=== PATIENT | female | born 1980 | race Two or more races ===

== ENCOUNTER 2018-06-15 11:31 | Emergency (ER) | payer SELFPAY ==
[2018-06-15 11:39] VITALS: BP 160/86
[2018-06-15] MEDS ORDERED: OXYCODONE-ACETAMINOPHEN 5-325 MG TABLET PO ONE (12:27)
--- NOTE | 2018-06-15 12:31 | ER Document Report ---
ED Neck/Back Problem - General Chief Complaint: Back Pain Stated Complaint: BACK PAIN Time Seen by Provider: 06/15/18 12:07 Mode of Arrival: Ambulatory Information source: Patient Notes: 37-year-old female presents to ED for complaint of low back pain. She is a chronic pain regimen patient who went to chronic pain management they wrote her a prescription for her oxycodone and the pharmacy would not fill them yesterday. They stated that her insurance stated she had had more than she could have and that she needed to be authorized and that would not start until tomorrow and then it would take 72 hours. Patient states she had offered to pay pickens and the pharmacist would not sell her the medication. Patient states she does not have full Medicaid anymore she only has family planning. Patient states she is to have surgery on her back on 23 June and she is out of her pain medicine. TRAVEL OUTSIDE OF THE [place] IN LAST 30 DAYS: No - HPI Patient complains to provider of: Lower back Onset: Other Onset: Chronic - Chronic Timing: Still present, Worse - Due to pharmacy not filling her prescription Quality of pain: Sharp, Throbbing Severity: Severe Pain Level: 5 Context: Turning Recent injury: No Associated symptoms: Like prior neck/back pain, Radiation to leg, Lower back pain. denies: Constipation, Fever, Incontinence, Motor loss, Numbness/tingling, Sensory loss, Sweaty, Unable to urinate, Upper back pain Exacerbated by: Movement of trunk, Sitting position Relieved by: Nothing Similar symptoms previously: Yes Recently seen / treated by doctor: Yes - Related Data Allergies/Adverse Reactions: No Known Allergies Allergy (Verified 06/15/18 11:34) Past Medical History - General Information source: Patient - Social History Smoking Status: Former Smoker Cigarette use (# per day): No Chew tobacco use (# tins/day): No Smoking Education Provided: No Frequency of alcohol use: None Drug Abuse: None Lives with: Family Family History: Reviewed & Not Pertinent Patient has suicidal ideation: No Patient has homicidal ideation: No - Past Medical History Cardiac Medical History: Reports: Hx Hypertension Pulmonary Medical History: Reports: None EENT Medical History: Reports: None Neurological Medical History: Reports: None Endocrine Medical History: Reports: None Renal/ Medical History: Reports: None Malignancy Medical History: Reports: None GI Medical History: Reports: None Musculoskeletal Medical History: Reports Hx Muscle Weakness, Reports Hx Musculoskeletal Deformity - chronic back pain, Reports Hx Musculoskeletal Trauma Skin Medical History: Reports None Psychiatric Medical History: Reports: None Traumatic Medical History: Reports: None Infectious Medical History: Reports: None Past Surgical History: Reports: Hx Section, Hx Oral Surgery - wisdom - Immunizations Immunizations up to date: Yes Hx Diphtheria, Pertussis, Tetanus Vaccination: Yes Review of Systems - Review of Systems Gastrointestinal: Constipation - Patient had a firm stool today Genitourinary: No symptoms reported Female Genitourinary: No symptoms reported Musculoskeletal: Back pain Skin: No symptoms reported Hematologic/Lymphatic: No symptoms reported Neurological/Psychological: No symptoms reported -: Yes All other systems reviewed and negative Physical Exam - Vital signs Vitals: Temp Pulse Resp BP Pulse Ox 98.5 F 105 H 24 H 160/86 H 98 06/15/18 11:38 06/15/18 11:38 06/15/18 11:38 06/15/18 11:38 06/15/18 11:38 Interpretation: Normal - General General appearance: Appears well, Alert - HEENT Head: Normocephalic, Atraumatic Eyes: Normal Pupils: PERRL - Respiratory Respiratory status: No respiratory distress Chest status: Nontender Breath sounds: Normal Chest palpation: Normal - Cardiovascular Rhythm: Regular Heart sounds: Normal auscultation Murmur: No - Abdominal Inspection: Normal Distension: No distension Bowel sounds: Normal Tenderness: Nontender Organomegaly: No organomegaly - Back Back: Normal, Tender, Vertebra tenderness. No: Deformity/step-off, CVA tenderness, Scars, Scoliosis, Wounds Notes: Patient is very tearful at the bedside. Patient is able to walk. She does have chronic back pain. She is in the emergency room today because the pharmacy would not fill her narcotics and she is in a lot of pain. She is scheduled to have back surgery on 21 November. She does not have cauda equina. She recently had an MRI by her neurologist. - Extremities General upper extremity: Normal inspection, Nontender, Normal color, Normal ROM, Normal temperature General lower extremity: Normal inspection, Nontender, Normal color, Normal ROM, Normal temperature, Normal weight bearing. No: Shell's sign - Neurological Neuro grossly intact: Yes Cognition: Normal Orientation: AAOx4 [place] Coma Scale Eye Opening: Spontaneous [place] Coma Scale Verbal: Oriented [place] Coma Scale Motor: Obeys Commands [place] Coma Scale Total: 15 Speech: Normal Motor strength normal: LUE, RUE, LLE, RLE Sensory: Normal - Psychological Associated symptoms: Normal affect, Normal mood - Skin Skin Temperature: Warm Skin Moisture: Dry Skin Color: Normal Course - Re-evaluation Re-evalutation: 06/15/18 13:30 Pharmacy was called and informed that the chronic pain management wrote the prescription for the oxycodone the patient lost her insurance so there is no prior authorization because there is no authorization as she is on family planning Medicaid only. Patient is willing to pay for the prescription and pain management gave her a discount paper to get the prescription and that they need to fill it. Pharmacy is agreed that she would have the medicine ready in 1 hour. Patient was given a dose of oxycodone 10/10/2024 in the emergency room and sent to the pharmacy to get her medications. - Vital Signs Vital signs: Temp Pulse Resp BP Pulse Ox 98.5 F 105 H 24 H 160/86 H 98 06/15/18 11:38 06/15/18 11:38 06/15/18 11:38 06/15/18 11:38 06/15/18 11:38 Discharge - Discharge Clinical Impression: Chronic low back pain with bilateral sciatica Qualifiers: Back pain laterality: bilateral Qualified Code(s): M54.42 - Lumbago with sciatica, left side Condition: Stable Disposition: HOME, SELF-CARE Additional Instructions: You were seen here today for your chronic low back pain because the pharmacy would not fill your prescription. I have called the pharmacy and they will fill your prescription in 1 hour. I have given you 1 narcotic while you were here to wait for your pharmacy to fill your medicine. Please follow all of the orders that your chronic pain management and your neurologist have given you concerning your chronic back pain. Ice Packs Apply ice packs frequently against the painful area. Many different schedules are recommended, such as "20 minutes on, 20 minutes off" or "one hour ice, two hours rest." If you need to work, you may need to go longer between ice treatments. You should plan to have the area ice packed AT LEAST one fourth of the time. The ice should be applied over the wrap, tape, or splint, or over a layer of cloth -- not directly against the skin. Some ice bags have a built-in cloth and can be put directly on the skin. Warm Packs After approximately two days, apply gentle heat (such as a heating pad or hot water bottle) for about 20 to 30 minutes about every two hours -- at least four times daily. Warmth and elevation will help you make a more rapid recovery, and will ease the pain considerably. Do not use HOT heat, and never apply heat for longer than 30 minutes. The continuous heat can invisibly damage skin and muscles -- even when no burn is seen on the surface. Damaged muscles can make you MORE sore. FOLLOW-UP CARE: If you have been referred to a physician for follow-up care, call the physicians office for an appointment as you were instructed or within the next two days. If you experience worsening or a significant change in your symptoms, notify the physician immediately or return to the Emergency Department at any time for re-evaluation. Forms: Elevated Blood Pressure Referrals: DAYDAY PORTILLO MD [Primary Care Provider] - Follow up as needed
== END 2018-06-15 12:42 | disposition home or self-care (01) ==
LOC: ER 11:31
DX: G89.29 Other chronic pain (principal); M54.42 Lumbago with sciatica, left side; M54.41 Lumbago with sciatica, right side; K59.00 Constipation, unspecified; I10 Essential (primary) hypertension; Z87.891 Personal history of nicotine dependence
CPT/HCPCS: 99283

== ENCOUNTER 2018-08-13 14:32 | Emergency (ER) | payer MEDICAID ==
--- NOTE | 2018-08-13 15:41 | ER Document Report ---
ED Medical Screen (RME) - General Chief Complaint: Leg Pain Stated Complaint: POST OP PROBLEMS Time Seen by Provider: 08/13/18 15:38 Primary Care Provider: DAYDAY PORTILLO MD [Primary Care Provider] - Follow up as needed Notes: 37-year-old female to the emergency department for evaluation of right lower extremity pain and swelling. Patient had back surgery 5 weeks ago. Was sent here by her surgeon for evaluation of possible blood clot as her leg is swollen and painful. I have greeted and performed a rapid initial assessment of this patient. A comprehensive ED assessment and evaluation of the patient, analysis of test results and completion of the medical decision making process will be conducted by additional ED providers. TRAVEL OUTSIDE OF THE [place] IN LAST 30 DAYS: No - Related Data Allergies/Adverse Reactions: No Known Allergies Allergy (Verified 08/13/18 14:33) Past Medical History - Past Medical History Cardiac Medical History: Reports: Hx Hypertension Renal/ Medical History: Denies: Hx Peritoneal Dialysis Musculoskeltal Medical History: Reports Hx Muscle Weakness, Reports Hx Musculoskeletal Deformity - chronic back pain, Reports Hx Musculoskeletal Trauma Past Surgical History: Reports: Hx Section, Hx Oral Surgery - wisdom - Immunizations Immunizations up to date: Yes Hx Diphtheria, Pertussis, Tetanus Vaccination: Yes Physical Exam - Vital signs Vitals: Temp Pulse Resp BP Pulse Ox 99.1 F 87 20 152/93 H 99 08/13/18 14:39 08/13/18 14:39 08/13/18 14:39 08/13/18 14:39 08/13/18 14:39 Course - Vital Signs Vital signs: Temp Pulse Resp BP Pulse Ox 99.1 F 87 20 152/93 H 99 08/13/18 14:39 08/13/18 14:39 08/13/18 14:39 08/13/18 14:39 08/13/18 14:39 Doctor's Discharge - Discharge Referrals: DAYDAY PORTILLO MD [Primary Care Provider] - Follow up as needed
--- NOTE | 2018-08-13 16:13 | ER Document Report ---
ED Extremity Problem, Lower - General Chief Complaint: Leg Pain Stated Complaint: POST OP PROBLEMS Time Seen by Provider: 08/13/18 15:38 Primary Care Provider: DAYDAY PORTILLO MD [Primary Care Provider] - Follow up as needed Mode of Arrival: Ambulatory Information source: Patient Notes: 37-year-old female presents to ED for complaint of pain to the right lower ext remity above and below the knee with swelling when she is up and walk. She had spinal fusion 5 weeks ago. She states that the neurosurgeon sent her to the emergency room to have a Doppler to evaluate for blood clot in her leg as her leg is painful and swollen. At this time it is tender to palpation posterior knee and anterior knee. There is no redness or swelling at this time. Patient is alert and oriented respirations regular and unlabored speaking in full sentences TRAVEL OUTSIDE OF THE [place] IN LAST 30 DAYS: No - HPI Patient complains to provider of: Pain, Swelling Location: Knee, Leg, Thigh Onset/Duration: Gradual Quality of pain: Sharp, Throbbing Severity: Moderate Pain Level: 4 Context: Other Recent injury: No Associated symptoms: Painful ambulation - Recent surgery, Other - Pain and swelling to the right lower extremity from just above the knee to below the knee with pain to the anterior and posterior knee Exacerbated by: Hanging down, Movement, Walking Relieved by: Nothing - Related Data Allergies/Adverse Reactions: No Known Allergies Allergy (Verified 08/13/18 16:11) Past Medical History - General Information source: Patient - Social History Smoking Status: Former Smoker Cigarette use (# per day): No Chew tobacco use (# tins/day): No Smoking Education Provided: No Frequency of alcohol use: None Drug Abuse: None Lives with: Family Family History: Reviewed & Not Pertinent Patient has suicidal ideation: No Patient has homicidal ideation: No - Past Medical History Cardiac Medical History: Reports: Hx Hypertension Pulmonary Medical History: Reports: None EENT Medical History: Reports: None Neurological Medical History: Reports: None Endocrine Medical History: Reports: None Renal/ Medical History: Reports: None Malignancy Medical History: Reports: None GI Medical History: Reports: None Musculoskeletal Medical History: Reports Hx Muscle Weakness, Reports Hx Musculoskeletal Deformity - chronic back pain, Reports Hx Musculoskeletal Trauma Skin Medical History: Reports None Psychiatric Medical History: Reports: None Traumatic Medical History: Reports: None Infectious Medical History: Reports: None Past Surgical History: Reports: Hx Section, Hx Oral Surgery - wisdom, Hx Orthopedic Surgery - Spinal fusion lumbar area 06/23/2018 - Immunizations Immunizations up to date: Yes Hx Diphtheria, Pertussis, Tetanus Vaccination: Yes Review of Systems - Review of Systems Constitutional: No symptoms reported EENT: No symptoms reported Cardiovascular: No symptoms reported Respiratory: No symptoms reported Gastrointestinal: No symptoms reported Genitourinary: No symptoms reported Female Genitourinary: No symptoms reported Musculoskeletal: Joint pain - Right knee, Joint swelling - Right knee, Leg swelling - Right Skin: No symptoms reported Hematologic/Lymphatic: No symptoms reported Neurological/Psychological: No symptoms reported Physical Exam - Vital signs Vitals: Temp Pulse Resp BP Pulse Ox 99.1 F 87 20 152/93 H 99 08/13/18 14:39 08/13/18 14:39 08/13/18 14:39 08/13/18 14:39 08/13/18 14:39 Interpretation: Normal - General General appearance: Appears well, Alert - HEENT Head: Normocephalic, Atraumatic Eyes: Normal Pupils: PERRL - Respiratory Respiratory status: No respiratory distress Chest status: Nontender Breath sounds: Normal Chest palpation: Normal - Cardiovascular Rhythm: Regular Heart sounds: Normal auscultation Murmur: No - Abdominal Inspection: Normal Distension: No distension Bowel sounds: Normal Tenderness: Nontender Organomegaly: No organomegaly - Back Back: Normal, Nontender - Extremities General upper extremity: Normal inspection, Nontender, Normal color, Normal ROM, Normal temperature General lower extremity: Normal color, Normal temperature, Normal weight bearing. No: Shell's sign Knee: Tender, Pain with ROM, Patellar tendon intact, Popliteal fossa tender, Tender joint line. No: Abrasion, Deformity, Dislocation, Drawer's test instability, Ecchymosis, Instability, Joint effusion, Laceration, Laxity with valgus stress, Laxity with varus stress, Unable to bear weight - Neurological Neuro grossly intact: Yes Cognition: Normal Orientation: AAOx4 [place] Coma Scale Eye Opening: Spontaneous [place] Coma Scale Verbal: Oriented [place] Coma Scale Motor: Obeys Commands [place] Coma Scale Total: 15 Speech: Normal Motor strength normal: LUE, RUE, LLE, RLE Sensory: Normal - Psychological Associated symptoms: Normal affect, Normal mood - Skin Skin Temperature: Warm Skin Moisture: Dry Skin Color: Normal Course - Vital Signs Vital signs: Temp Pulse Resp BP Pulse Ox 97.6 F 83 18 136/84 H 98 08/13/18 18:08 08/13/18 18:08 08/13/18 18:08 08/13/18 18:08 08/13/18 18:08 - Diagnostic Test Radiology reviewed: Image reviewed, Reports reviewed Discharge - Discharge Clinical Impression: Arthritis of right knee, Pain, joint, knee, right Condition: Stable Disposition: HOME, SELF-CARE Additional Instructions: Arthritis Your symptoms are due to arthritis. Arthritis is an inflammation of the joints. There are many types -- osteoarthritis (due to "wear and tear"), auto- immmune arthritis (such as rheumatoid, lupus, Melissa's, and others), and crystal-induced arthritis (such as gout and pseudogout). The physician's examination, combined with laboratory tests, will determine the cause of your arthritis. All types of arthritis are treated with antiinflammatory medications. Other medication may be required for special types of arthritis, or if your problem does not respond to the antiinflammatory medicine. Local warmth may be helpful. Move the involved joints through the full ran ge of motion daily. Mild exercise is usually still possible for most persons with arthritis (ask your physician). Swimming provides good exercise without damaging the joints. Contact the physician if you are worsening in any way. Ibuprofen Ibuprofen is an excellent, safe drug for pain control. In addition, it has potent antiinflammatory effects which are beneficial, especially in the treatment of injuries, arthritis, or tendonitis. It's best to take ibuprofen with food. Persons with ulcer disease or allergy to aspirin should notify their physician of this before taking ibuprofen. Take the medication exactly as prescribed. Don't take additional doses unless instructed to do so by your doctor. If you develop wheezing, shortness of breath, hives, faintness, stomach pain, vomiting, or dark black stools, return for re-evaluation at once. Ice & Elevation Apply ice packs frequently against the painful area. Many different schedules are recommended, such as "20 minutes on, 20 minutes off" or "one hour ice, two hours rest." If you need to work, you may need to go longer between ice treatments. You should plan to have the area ice packed AT LEAST one-fourth of the time. The ice should be applied over the wrap, tape, or splint, or over a layer of cloth -- not directly against the skin. Some ice bags have a built-in cloth and can be put directly on the skin. Your injured part should be elevated as much as possible over the next 48 hours. Try to keep the injury above the level of the heart. Avoid use of the injured area. Elevation and rest will decrease the swelling. Knee Exercise Program It's important to strengthen the muscles around the knee. This protects the injured area and stabilizes a knee that's been loosened by ligament injury. EARLY - Even when motion of the knee is painful (even when wearing a splint), you can begin isometric "quads" exercises. While sitting, hold the knee out, and contract the muscles to stiffen it. It shouldn't be straightened all the way -- stiffen it in a slightly-bent position. Lift the leg and draw a "T" with your foot, up to 100 times. When it becomes easy, add a weight on your foot. LATE - When the doctor advises you, you can begin moving the knee against resistance. The front muscles (quadriceps) are most important. While sitting at a [employer], straighten the knee forcefully while pushing a weight up with your ankle. Start with five to 10 pounds. Do 10 to 20 repetitions, increasing the weight as tolerated. Don't use more weight than is comfortable! Over a few weeks, work up to 35 to 50 pounds. Athletes should try to reach 70 to 90 pounds. FOLLOW-UP CARE: If you have been referred to a physician for follow-up care, call the physicians office for an appointment as you were instructed or within the next two days. If you experience worsening or a significant change in your symptoms, notify the physician immediately or return to the Emergency Department at any time for re-evaluation. Forms: Elevated Blood Pressure Referrals: DAYDAY PORTILLO MD [Primary Care Provider] - Follow up as needed
--- NOTE | 2018-08-13 16:55 | RADIOLOGY REPORT (SQ) ---
EXAM DESCRIPTION: KNEE RIGHT 4 VIEWS COMPLETED DATE/TIME: 08/13/2018 4:25 pm REASON FOR STUDY: pain post op for spinal surgery COMPARISON: None. NUMBER OF VIEWS: Four views. TECHNIQUE: AP, lateral, and both oblique radiographic images acquired of the right knee. LIMITATIONS: None. FINDINGS: MINERALIZATION: Normal. BONES: No acute fracture or dislocation. No worrisome bone lesions. JOINT: Mild narrowing of the medial and patellofemoral compartments. Marginal osteophytes off of th e mediolateral compartments of the knee. No effusion. SOFT TISSUES: No soft tissue swelling. No radio-opaque foreign body. OTHER: No other significant finding. IMPRESSION: 1. Mild tricompartmental degenerative changes, more so at the medial and lateral compar tments of the knee. 2. No acute osseous findings. TECHNICAL DOCUMENTATION: JOB ID: [id number] [employer]- All Rights Reserved Reading location - IP/workstation name: [email or web address]
--- NOTE | 2018-08-13 17:58 | RADIOLOGY REPORT (SQ) ---
EXAM DESCRIPTION: VENOUS UNILATERAL LOWER COMPLETED DATE/TIME: 08/13/2018 5:38 pm REASON FOR STUDY: pain right leg post op back sx 5wks COMPARISON: None. TECHNIQUE: Dynamic and static elizondo scale and color images acquired of the right leg venous system. S elected spectral images acquired with additional compression and augmentation maneuvers. The contrala teral common femoral vein and saphenofemoral junction were also imaged. Images stored on PACS. LIMITATIONS: None. FINDINGS: COMMON FEMORAL: Normal phasicity, compression and augmentation. No visualized echogenic ma terial on elizondo scale. No defects on color images. FEMORAL: Normal compression and augmentation. No visualized echogenic material on elizondo scale. No defe cts on color images. POPLITEAL: Normal compression, augmentation. No visualized echogenic material on elizondo scale. No defec ts on color images. CALF VESSELS: Normal compression, augmentation. No visualized echogenic material on elizondo scale. No de fects on color images. GSV and SSV: Normal compression, augmentation. No visualized echogenic material on elizondo scale. No def ects on color images. ANY DEEP VENOUS INSUFFICIENCY: Not evaluated. ANY EVIDENCE OF POPLITEAL CYST: No. OTHER: No other significant finding. CONTRALATERAL COMMON FEMORAL VEIN AND SAPHENOFEMORAL JUNCTION: Normal phasicity, compression and augmentation. No visualized echogenic material on elizondo scale. No de fects on color images. IMPRESSION: NO EVIDENCE OF DVT OR SVT IN THE RIGHT LEG. TECHNICAL DOCUMENTATION: JOB ID: [id number] [employer]- All Rights Reserved Reading location - IP/workstation name: [email or web address]
[2018-08-13 18:09] VITALS: BP 136/84
== END 2018-08-13 18:29 | disposition home or self-care (01) ==
LOC: ER 14:32
DX: M17.11 Unilateral primary osteoarthritis, right knee (principal); M79.661 Pain in right lower leg; M79.651 Pain in right thigh; Z98.1 Arthrodesis status; I10 Essential (primary) hypertension; M79.89 Other specified soft tissue disorders; Z87.891 Personal history of nicotine dependence
CPT/HCPCS: 93971; 99284

== ENCOUNTER 2019-01-15 19:36 | Emergency (ER) | payer OTHER, MEDICAID ==
[2019-01-15] MEDS ORDERED: OXYCODONE-ACETAMINOPHEN 5-325 MG TABLET PO ONE (19:51)
[2019-01-15] MEDS ORDERED: METHOCARBAMOL 500 MG TABLET PO ONE (19:52)
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
[2019-01-15] MEDS ORDERED: KETOROLAC TROMETHAMINE INJ/PF 30 MG/1 ML SDV IV ONE (21:48)
[2019-01-15] MEDS ORDERED: LISINOPRIL 10 MG TABLET PO ONE (21:49)
[2019-01-15] MEDS ORDERED: METFORMIN HCL 500 MG TABLET PO ONE (21:49)
[2019-01-15] MEDS ORDERED: HYDROCHLOROTHIAZIDE 12.5 MG TABLET PO ONE (21:49)
[2019-01-15] MEDS ORDERED: LEVOTHYROXINE SODIUM 0.05 MG TABLET PO ONE (21:49)
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
[2019-01-15] MEDS ORDERED: KETOROLAC TROMETHAMINE 60 MG/2 ML SDV IM ONE (22:04)
[2019-01-16 00:24] VITALS: BP 146/74
== END 2019-01-16 00:13 | disposition home or self-care (01) ==
LOC: ER 19:36
DX: S09.90XA Unspecified injury of head, initial encounter (principal); M54.5 Low back pain; M54.2 Cervicalgia; V89.2XXA Person injured in unspecified motor-vehicle accident, traffic, initial encounter; F17.200 Nicotine dependence, unspecified, uncomplicated; I10 Essential (primary) hypertension
CPT/HCPCS: 72131; J1885

== ENCOUNTER → 2019-01-21 | Outpatient (CLI) | payer MEDICAID ==
--- NOTE | 2019-01-22 12:42 | RADIOLOGY REPORT (SQ) ---
EXAM DESCRIPTION: L SPINE W/FLEX/EXT COMPLETED DATE/TIME: 01/21/2019 7:31 pm REASON FOR STUDY: LUMBAR RADICULOPATHY COMPARISON: None. NUMBER OF VIEWS: Four view TECHNIQUE: An AP view was obtained. Lateral views were obtained in neutral, flexion, and extension. LIMITATIONS: None. FINDINGS: MINERALIZATION: Normal. SEGMENTATION: Normal. No transitional anatomy. ALIGNMENT: Normal. FLEXION/EXTENSION: No instability. VERTEBRAE: Maintained height. No fracture or worrisome bone lesion. DISCS: Disc implants are present at L3-4 and L4-5. POSTERIOR ELEMENTS: Pedicles and facets are intact. No pars defect or posterior arch defects. HARDWARE: Posterior rods extend from L3-L5 with screws through the pedicles and with disc implants. OTHER: No other significant finding. IMPRESSION: Surgical changes. No acute finding. No instability on flexion/extension. TECHNICAL DOCUMENTATION: JOB ID: [id number] [employer]- All Rights Reserved Reading location - IP/workstation name: [email or web address]
== END ==
LOC: RAD 18:59
PROVIDERS: ATTEND Specialist
DX: M54.16 Radiculopathy, lumbar region (principal)
CPT/HCPCS: 72114

== ENCOUNTER → 2019-12-25 | Outpatient (CLI) | payer MEDICAID ==
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
== END ==
LOC: RAD 17:54
PROVIDERS: ATTEND Physician Assistant
DX: M17.11 Unilateral primary osteoarthritis, right knee (principal); M25.461 Effusion, right knee; M71.21 Synovial cyst of popliteal space [Baker], right knee